=== PATIENT | female | born 1950 | race Caucasian/White ===

== ENCOUNTER 2016-11-03 13:31 | Emergency (ER) | payer MEDICARE, MEDICAID ==
[2016-07-01 15:10] VITALS: BMI 34.0
[~2016-11-03 13:31] MED LIST: ATIVAN0.5 MG PO; GLIPIZIDE10 MG PO; LANTUS INSULIN10 ML SC; LISINOPRIL10 MG PO; NORCO 7.5/325 T1 TA1 PO; PERCOCET 10/3251 TA1 PO
== END 2016-11-03 15:36 | disposition left against medical advice (07) ==
LOC: D.ER 13:31
DX: S40.862A Insect bite (nonvenomous) of left upper arm, initial encounter (principal)

== ENCOUNTER 2016-11-04 09:30 | Emergency (ER) | payer MEDICARE, MEDICAID ==
[2016-07-01 15:10] VITALS: BMI 34.0
== END 2016-11-04 13:01 | disposition home or self-care (01) ==
LOC: D.ER 09:30
DX: M54.9 Dorsalgia, unspecified (principal); S50.862A Insect bite (nonvenomous) of left forearm, initial encounter; B19.20 Unspecified viral hepatitis C without hepatic coma; E11.9 Type 2 diabetes mellitus without complications; Z79.4 Long term (current) use of insulin

== ENCOUNTER 2017-01-06 17:24 | Emergency (ER) | payer MEDICARE, MEDICAID ==
[2016-07-01 15:10] VITALS: BMI 34.0
== END 2017-01-06 20:58 | disposition home or self-care (01) ==
LOC: D.ER 17:24
DX: S39.012A Strain of muscle, fascia and tendon of lower back, initial encounter (principal); X50.3XXA Overexertion from repetitive movements, initial encounter; M54.40 Lumbago with sciatica, unspecified side; M62.830 Muscle spasm of back

== ENCOUNTER 2017-12-19 10:31 | Emergency (ER) | payer MEDICARE ==
[2016-07-01 15:10] VITALS: BMI 34.0
== END 2017-12-19 12:41 ==
LOC: D.ER
DX: M25.512 Pain in left shoulder (principal); I10 Essential (primary) hypertension